=== PATIENT | female | born 1980 | race Caucasian/White ===

== ENCOUNTER 2016-12-02 11:34 | Emergency (ER) | payer OTHER, MEDICARE ==
--- NOTE | 2016-12-02 11:41 | ED SKIN/ALLERGY COMPLAINT ---
History of Present Illness General Chief Complaint: Syncope and Near-Syncope Stated Complaint: BIBA SYNCOPE Source: patient, EMS Exam Limitations: no limitations Vital Signs & Intake/Output Vital Signs & Intake/Output Vital Signs Date Time Temp Pulse Resp B/P Pulse O2 O2 Flow FiO2 Ox Delivery Rate 12/02 1153 97.9 74 18 99/61 97 Room Air Room Air Allergies Coded Allergies: Penicillins (DOESN'T REMEMBER ?RASH 12/02/16) Reconcile Medications Azithromycin (Zithromax) 250 MG TABLET 1 DP PO AD SINUSITIS 2 the first day followed by 1 for days 2-5 Triage Nurses Notes Reviewed? yes Onset: Abrupt Duration: minute(s): (30) Timing: single episode today Severity: moderate Possible Factors: fever, feeling weak Associated Symptoms: fever HPI: This is a 36 year old female who arrives via EMS. She started feeling lightheaded while in the shower so she got out of the shower and called to her daughter. She then sat down on the ground and leaned over to the side of the wall. Per daughter she passed out for approximately 5 seconds. She was diaphoretic and clammy. Patient reported a fever of 102 last night and positive sick contacts in the house. Denies any ear pain, throat pain or cough. Admits to facial pain and she thought she had a sinus infection. No vomiting, diarrhea or rash. Past History Travel History Traveled to [place] past 21 day No Medical History Any Pertinent Medical History? none Surgical History Surgical History: non-contributory Psychosocial History What is your primary language Bel[place]ian Family History Hx Contributory? No Review of Systems Review of Systems Constitutional: Reports: chills, fever, malaise, weakness. EENTM: Reports: nasal congestion. Denies: ear pain, throat pain. Respiratory: Denies: cough, short of breath, sputum production. Cardiovascular: Denies: chest pain, palpitations, peripheral edema. GI: Denies: abdominal pain, diarrhea, vomiting. Genitourinary: Denies: discharge, dysuria. Musculoskeletal: Reports: no symptoms. Skin: Reports: no symptoms. Neurological/Psychological: Reports: no symptoms. Hematologic/Endocrine: Denies: bruising, bleeding, polyuria, polydipsia. Immunologic/Allergic: Denies: splenectomy. All Other Systems: Reviewed and Negative Physical Exam Physical Exam General Appearance: well developed/nourished, mild distress Head: atraumatic Eyes: Bilateral: PERRL, EOMI. Ears, Nose, Throat: normal pharynx, normal ENT inspection, hearing grossly normal Neck: normal inspection, supple Respiratory: normal breath sounds Cardiovascular: regular rate/rhythm Peripheral Pulses: 2+ radial (R), 2+ radial (L) Gastrointestinal: soft, non-tender Back: normal inspection Extremities: normal inspection, normal range of motion, no edema Neurologic/Psych: awake, alert, oriented x 3, normal mood/affect Skin: intact, normal color, warm/dry Lymphatic: no anterior cervical constantino Progress Differential Diagnosis: syncope, near syncope, dehydration, orthostatic hypotension, OBIE, volume loss Plan of Care: Orders Procedure Date/time Status RAPID VIRAL INFLUENZA A 12/02 1217 Complete URINALYSIS 12/02 1208 Active MISTAKE 12/02 1207 Active HUMAN BETA HCG SCREEN 12/02 1205 Complete COMPREHENSIVE METABOLIC PANEL 12/02 1205 Complete CBC WITHOUT DIFFERENTIAL 12/02 1205 Complete EKG 12/02 1146 Active Laboratory Tests 12/02/16 1214: Anion Gap 9, Estimated GFR > 60, BUN/Creatinine Ratio 12.5, Glucose 87, Calcium 8.3 L, Total Bilirubin 0.5, AST 30, ALT 43, Alkaline Phosphatase 47, Total Protein 6.0 L, Albumin 3.5, Globulin 2.5, Albumin/Globulin Ratio 1.4, Total Beta HCG NEGATIVE, CBC w Diff NO MAN DIFF REQ, RBC 4.48, MCV 86.6, MCH 28.9, RDW 14.6 H, MPV 6.6 L, Gran % 67.6, Lymphocytes % 16.3 L, Monocytes % 11.4 H, Eosinophils % 4.3, Basophils % 0.4, Absolute Granulocytes 3.9, Absolute Lymphocytes 1.0 L, Absolute Monocytes 0.7 H, Absolute Eosinophils 0.2, Absolute Basophils 0, PUBS MCHC 33.3 ekg, tele monitor, orthostatic, . check flu swab. patient feeling much better after IV fluids, feels ready to go home. orthostatics negative. beta HCG negative. (PRIYA NÚÑEZ,FE) Initial ED EKG: NSR Rhythm Strip: normal sinus rhythm Departure Departure Time of Disposition: 1431 Disposition: HOME OR SELF CARE Condition: Stable Clinical Impression Primary Impression: Sinusitis Secondary Impressions: Syncope and collapse Referrals: NADER BOWLING APRN (PCP/Family) Additional Instructions: Drink plenty of fluids. Please follow-up with your doctor in the office. Return to the ER for any changing or worsening symptoms. Per prescription and is at the pharmacy. Departure Forms: Customer Survey General Discharge Information Prescriptions: Current Visit Scripts Azithromycin (Zithromax) 1 DP PO AD #6 TAB 2 the first day followed by 1 for days 2-5
[2016-12-02 12:23] LABS: ABSOLUTE BASOPHIL COUNT 0 /CUMM (0.0-0.2); ABSOLUTE EOSINOPHIL COUNT 0.2 /CUMM (0.0-0.7); ABSOLUTE GRANULOCYTE CT 3.9 /CUMM (1.4-6.5); ABSOLUTE MONOCYTE COUNT 0.7 /CUMM (0.10-0.60); BASOPHIL % 0.4 % (0.0-2.0); EOSINOPHIL % 4.3 % (0-5); GRANULOCYTE % 67.6 % (42.2-75.2); HEMATOCRIT 38.8 % (37-47); MEAN CORPUSCULAR HGB 28.9 PG (27.0-31.0); MEAN CORPUSCULAR HGB CONC 33.3 G/DL (33.0-37.0); MEAN CORPUSCULAR VOLUME 86.6 FL (81.0-99.0); MEAN PLATELET VOLUME 6.6 FL (7.4-10.4); PLATELET COUNT 206 /CUMM (130-400); RBC DISTRIBUTION WIDTH 14.6 % (11.5-14.5); RED BLOOD CELL CT 4.48 /CUMM (4.20-5.40); WHITE BLOOD CELL COUNT 5.8 /CUMM (4.8-10.8)
[2016-12-02] MEDS ORDERED: ZITHROMAX250 M2 PO (14:31)
[2016-12-02 14:56] VITALS: BP 106/62
== END 2016-12-02 15:04 ==
LOC: ERH 11:34
PROVIDERS: Emergency Medicine
DX: J32.9 Chronic sinusitis, unspecified (principal); R55 Syncope and collapse
CPT/HCPCS: 87804; 87804-59; 93005; 93010; 96361; 96374; J1885

== ENCOUNTER 2017-03-30 20:13 | Emergency (ER) | payer OTHER, MEDICARE ==
[~2017-03-30] VITALS: Ht 167.6 cm; Wt 81.6 kg
[~2017-03-30 20:13] MED LIST: ZITHROMAX250 M2 PO
--- NOTE | 2017-03-30 21:21 | ED GENERAL ADULT ---
History of Present Illness General Chief Complaint: Eye Problems Stated Complaint: RGHT EYE RED/SWELLING Source: patient Exam Limitations: no limitations Vital Signs & Intake/Output Vital Signs & Intake/Output Vital Signs Date Time Temp Pulse Resp B/P B/P Pulse O2 O2 Flow FiO2 Mean Ox Delivery Rate 03/30 2202 98.0 71 18 126/81 98 Room Air 03/30 2018 97.6 88 18 136/79 98 Room Air Allergies Coded Allergies: Penicillins (DOESN'T REMEMBER ?RASH 12/02/16) Reconcile Medications Azithromycin (Zithromax) 250 MG TABLET 1 DP PO AD SINUSITIS 2 the first day followed by 1 for days 2-5 Dextran 70/Hypromellose (Artificial Tears) 1 EACH DROPERETTE 1 DROP OD 4 TIMES /DAY dry eye Mineral Oil/Petrolatum,White (Artificial Tears Eye Ointment) 15 %-83 % OINT...G. 1 IN OD NIGHTLY dry eye Moxifloxacin Hydrochloride (Vigamox) 0.5 % DROPS 1 GTT OPH TID corneal abrasion Triage Note: PT STATES THAT [place] AND THAT SHE WAS WEARING CONTACTS, COMPLAINS OF R EYE REDNESS AND PAIN SINCE THEN, DESCRIBES SANDPAPER IN HER EYE Triage Nurses Notes Reviewed? yes : No Patient currently breastfeeds: No HPI: 36-year-old otherwise healthy female presenting with right eye pain/redness since yesterday. [place] the [place] when she felt sand fly into her eye followed by immediate pain. Patient wears both contacts and glasses, has been unable to wear her contacts since yesterday. And presents wearing her eyeglasses. Denies eye itching or drainage, photophobia, blurry vision or other visual changes. (ZAIRA TYLER PA-C) Past History Travel History Traveled to [place] past 21 day No Medical History Any Pertinent Medical History? 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 No (ZAIRA TYLER PA-C) Review of Systems Review of Systems Constitutional: Reports: no symptoms. EENTM: Reports: eye pain, eye tearing. Denies: blurred vision, double vision, visual changes, eye drainage. Respiratory: Reports: no symptoms. Cardiovascular: Reports: no symptoms. GI: Reports: no symptoms. Skin: Reports: no symptoms. Neurological/Psychological: Reports: no symptoms. (ZAIRA TYLER PA-C) Physical Exam Physical Exam General Appearance: well developed/nourished, no apparent distress, comfortable Head: atraumatic Eyes: Right: corneal abrasion. Bilateral: PERRL, EOMI. Respiratory: normal breath sounds, lungs clear Cardiovascular: regular rate/rhythm Neurologic/Psych: awake, alert, oriented x 3, normal mood/affect Skin: intact, normal color, warm/dry Comments: Patient's visual acuity is 20/20 in her left eye and 20/30 in her right eye with her eyeglasses on. I am of the right eye there are diffuse conjunctival injections and clear/watery tearing, no visualized foreign bodies, upper and lower eyelids everted and swept, pupils are equally round and reactive to light, unrestricted EOMs, on fluorescein exam there is a small epithelial defect consistent with corneal abrasion Core Measures ACS in differential dx? No CVA/TIA Diagnosis: No Severe Sepsis Present: No Septic Shock Present: No (NAYELI JACKSON,ZAIRA) Progress Differential Diagnoses I considered the following diagnoses in my evaluation of the patient: [Corneal abrasion versus conjunctivitis versus foreign body versus Isreal conjunctivitis versus iritis] Plan of Care: Exam consistent with corneal abrasion. Given Rx for Vigamox drops and artificial tears. Instructed to not wear her contact lenses until her eye has recovered. Instructed to use her eyeglasses in the meantime. Initial ED EKG: none (NAYELI JACKSON,ZAIRA) Departure Departure Disposition: HOME OR SELF CARE Condition: Stable Clinical Impression Primary Impression: Corneal abrasion Referrals: NADER BOWLING APRN (PCP/Family) Additional Instructions: Discontinue use of your contact lenses at this time until your eye is feeling better, use her eyeglasses in the meantime. Use Vigamox drops 4 times daily. Use artificial tear drops 4 times daily during the day. Use artificial tear ointment nightly before bed. With your agricultural economist in the next 24-48 hours. Return to the ED for any new or worsening symptoms. Departure Forms: Customer Survey General Discharge Information Prescriptions: Current Visit Scripts Moxifloxacin Hydrochloride (Vigamox) 1 GTT OPH TID 7 Days Dextran 70/Hypromellose (Artificial Tears) 1 DROP OD 4 TIMES/DAY 7 Days Mineral Oil/Petrolatum,White (Artificial Tears Eye Ointment) 1 IN OD NIGHTLY 7 Days (ZAIRA TYLER PA-C) PA/MAIL DISTRIBUTOR Co-Sign Statement Statement: ED Attending supervision documentation- [] I saw and evaluated the patient. I have also reviewed all the pertinent lab results and diagnostic results. I agree with the findings and the plan of care as documented in the PA's/MAIL DISTRIBUTOR's documentation. [X] I have reviewed the ED Record and agree with the PA's/MAIL DISTRIBUTOR's documentation. [] Additions or exceptions (if any) to the PAs/MAIL DISTRIBUTOR's note and plan are summarized below: [] (JOSE L NÚÑEZ,JUNIOR Restrepo) Critical Care Note Critical Care Note Critical Care Time: non-applicable (ZAIRA TYLER PA-C)
[2017-03-30 22:02] VITALS: BP 126/81
[2017-03-30] MEDS ORDERED: VIGAMOX3 ML OPH (22:09)
[2017-03-30] MEDS ORDERED: ARTIFICIAL TEA1 EACH OD (22:09)
[2017-03-30] MEDS ORDERED: ARTIFICIAL TEA3.5 G1 OD (22:09)
== END 2017-03-30 22:14 ==
LOC: ERH 20:13
DX: S05.01XA Injury of conjunctiva and corneal abrasion without foreign body, right eye, initial encounter (principal); X58.XXXA Exposure to other specified factors, initial encounter; Y93.9 Activity, unspecified; Y92.832 Beach as the place of occurrence of the external cause